=== PATIENT | male | born 1980 | race Caucasian/White ===

== ENCOUNTER → 2020-04-30 | Outpatient (CLI) | payer MEDICARE, OTHER ==
--- NOTE | 2020-04-30 10:32 | US ---
EXAMINATION TYPE: US abdomen complete DATE OF EXAM: 04/30/2020 COMPARISON: NONE CLINICAL HISTORY: R16.1 Splenomegaly. Splenomegaly pain EXAM MEASUREMENTS: Liver Length: 18 cm Gallbladder Wall: .2 cm CBD: .5 cm Spleen: 11.8 cm Right Kidney: 11 x 4.8 x 5.9 cm Left Kidney: 10.7 x 5.2 x 3.7 cm Pancreas: Obscured by bowel gas Liver: Increased attenuation Gallbladder: No stones seen Evidence for sonographic Vieira's sign: No CBD: wnl Spleen: wnl Right Kidney: wnl Left Kidney: wnl Upper IVC: Limited Abd Aorta: Limited IMPRESSION: 1. Hepatomegaly with mild to moderate fatty dictation.
--- NOTE | 2020-04-30 13:00 | ECHOF ---
Referral Reason:R16.1, R07.9 MEASUREMENTS -------- HEIGHT: 170.2 cm WEIGHT: 127.0 kg BP: IVSd: 1.7 cm (0.6 - 1.1) LVIDd: 2.7 cm (3.9 - 5.3) LVPWd: 1.9 cm (0.6 - 1.1) EDV(Teich): 27 ml IVSs: 2.2 cm LVIDs: 1.7 cm LVPWs: 2.3 cm %IVS Thck: 32 % ESV(Teich): 8 ml EF(Teich): 70 % %FS: 38 % SV(Teich): 19 ml RVIDd: 2.8 cm (< 3.3) Ao Diam: 3.3 cm (2.0 - 3.7) LA Diam: 2.8 cm (2.7 - 3.8) AV Cusp: 1.5 cm (1.5 - 2.6) EPSS: 0.6 cm MV E Braulio: 0.70 m/s MV DecT: 133 ms MV Dec Davis: 5.3 m/s MV A Braulio: 0.45 m/s MV E/A Ratio: 1.54 MV PHT: 39 ms MR Vmax: 2.74 m/s MR maxP.06 mmHg LVOT Vmax: 2.11 m/s LVOT maxP.07 mmHg LVOT Vmax: 2.19 m/s LVOT Vmean: 1.42 m/s LVOT maxP.83 mmHg LVOT meanP.07 mmHg LVOT Env.Ti: 194 ms LVOT VTI: 28.5 cm AV Vmax: 1.53 m/s AV maxP.31 mmHg TR Vmax: 1.51 m/s TR maxP.10 mmHg RAP: 5.00 mmHg RVSP: 14.10 mmHg MV EF SLOPE: 84.08 mm/s (70 - 150) MV EXCURSION: 10.07 mm (> 18.000) FINDINGS -------- Resting tachycardia (HR>100bpm). This was a technically difficult study with suboptimal views. The cavity size is decreased. There is severe concentric left ventricular hypertrophy. Overall le ft ventricular systolic function is normal with, an EF between 60 - 65 %. LVOT Obstruction with a m ax gradient of 42mmHg The right ventricle is normal in size. The left atrial size is normal. The right atrial size is normal. xx ml of Lumason was utilized for enhancement of images. The aortic valve is trileaflet and appears structurally normal. The mitral valve is normal. Mild mitral regurgitation is present. The tricuspid valve appears structurally normal. Trace tricuspid regurgitation present. Right viri tricular systolic pressure is normal at < 35 mmHg. There is no pulmonic regurgitation present. The aortic root size is normal. IVC Not well visulized. There is a trivial pericardial effusion present. CONCLUSIONS -------- 1. The cavity size is decreased. 2. There is severe concentric left ventricular hypertrophy. 3. Overall left ventricular systolic function is normal with, an EF between 60 - 65 %. 4. LVOT Obstruction with a max gradient of 42mmHg. 5. Mild mitral regurgitation is present. 6. Trace tricuspid regurgitation present. 7. There is a trivial pericardial effusion present. RUBBER SPLICER: Christi Aviles RDCS
--- NOTE | 2020-05-01 10:25 | EST ---
EXERCISE STRESS AGE: 39 SEX: M HT: 5'7" WT: 279 lbs. PROTOCOL: Tito STAGE: 1 DURATION OF EXERCISE: 8:00 HEART RATE REST: 125 BLOOD PRESSURE REST: 140/101 MAXIMUM HEART RATE ACHIEVED: 147 MAXIMUM BLOOD PRESSURE: 247/94 85% MPHR: 152 100% MPHR: 179 METS: 6.2 INDICATIONS: Chest pain. CLINICAL INFORMATION: STRESS DATA: Heart rate is 125, pressure is 140/101 mmHg. Baseline EKG showed sinus mechanism. The patient exercised on the treadmill per Tito protocol for a total of 8 minutes and achieved 6.2 METS. Max heart rate was 147, which is about 82% of maximum predicted heart rate and maximum blood pressure was 247/94 mmHg. Clinically, the patient did not have symptoms of any chest pain or chest discomfort. The EKG did not show any significant ST or T-wave abnormalities concerning for ischemia. CONCLUSION: 1. Good exercise tolerance. 2. Normal EKG in response to exercise. 3. Exaggerated blood pressure response to exercise. MMODL / IJN: [id number] /
== END | disposition home or self-care (01) ==
LOC: RADUSWWP 07:23
PROVIDERS: ATTEND Family Medicine
DX: I05.1 Rheumatic mitral insufficiency (principal); R93.1 Abnormal findings on diagnostic imaging of heart and coronary circulation; R16.0 Hepatomegaly, not elsewhere classified; K76.0 Fatty (change of) liver, not elsewhere classified
CPT/HCPCS: 76700; 93017; 93306

== ENCOUNTER → 2020-05-15 | Outpatient (CLI) | payer MEDICARE, OTHER ==
--- NOTE | 2020-05-15 15:55 | NM ---
EXAMINATION TYPE: NM hepatobiliary w EF DATE OF EXAM: 05/15/2020 COMPARISON: NONE INDICATION: Enlarged spleen enlarged liver TECHNIQUE: After the intravenous administration of 5.2 mCi Tc 99m Mebrofenin hepatobiliary scintigrap hy is performed. Images were obtained immediately post injection. FINDINGS: There is prompt uptake and excretion of radiotracer by the liver. Extrahepatic ducts are identified at 12 minutes. The gallbladder is visualized within 2 minutes. Small bowel activity is noted within 26 minutes. At one hour 8 ounces of oral ensure plus is given to mimic CCK and gallbladder ejection fraction is c alculated at 70 %, which is in the normal range. (Normal >35% and <80%.). IMPRESSION: 1. Normal hepatobiliary scan
== END | disposition home or self-care (01) ==
LOC: RADNMMAIN 12:47
PROVIDERS: ATTEND Family Medicine
DX: R16.2 Hepatomegaly with splenomegaly, not elsewhere classified (principal)
CPT/HCPCS: 78226; A9537

== ENCOUNTER → 2021-07-02 | Outpatient (CLI) | payer MEDICARE, OTHER ==
--- NOTE | 2021-07-02 14:40 | XR ---
EXAMINATION TYPE: XR chest 2V DATE OF EXAM: 07/02/2021 COMPARISON: None HISTORY: 41-year-old male R06.02 SOB, Rib pain TECHNIQUE: Frontal and lateral views FINDINGS: Heart normal size. Aorta and pulmonary vasculature within normal limits. Some strandy atelectasis at the left base. Some patchy medial right basilar opacity is noted. No pleural effusion. IMPRESSION: Some strandy left basilar atelectasis. Additional patchy medial right basilar atelectasis versus deve loping infiltrate. Clinically correlate.
== END | disposition home or self-care (01) ==
LOC: RADXRMAIN 10:23
PROVIDERS: ATTEND Family Medicine
DX: J98.11 Atelectasis (principal)
CPT/HCPCS: 71046

== ENCOUNTER → 2024-04-21 | Outpatient (CLI) | payer MEDICARE, OTHER ==
--- NOTE | 2024-04-21 12:15 | XR ---
EXAMINATION TYPE: XR abdomen 1V DATE OF EXAM: 04/21/2024 11:23 AM COMPARISON: None. CLINICAL INDICATION: Male, 43 years old with history of UROLITHIASIS, TECHNIQUE: XR abdomen 1V view(s) obtained. FINDINGS: There is a normal bowel gas pattern. No free air is evident. No suspicious air-fluid levels are evide nt. No suspicious calcifications. Psoas margins are normal. No organomegaly is present. IMPRESSION: 1. [facility] Corinna Flores, , 04/21/2024 12:13 PM
== END | disposition home or self-care (01) ==
LOC: RADXRMAIN 10:59
PROVIDERS: ATTEND Family Medicine
DX: N20.9 Urinary calculus, unspecified (principal)
CPT/HCPCS: 74018